=== PATIENT | male | born 2000 | race Native Hawaiian/Other Pacific Islander ===

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

== ENCOUNTER 2021-05-18 07:52 | Outpatient (CLI) | payer OTHER | END 2021-05-18 21:41 | disposition home or self-care (01) | LOC: LAB 07:52 | PROVIDERS: ATTEND Internal Medicine | DX: Z20.822 Contact with and (suspected) exposure to COVID-19 (principal) | CPT/HCPCS: 87635; G2023; U0003 ==

== ENCOUNTER 2023-04-05 10:58 | Outpatient (CLI) | payer OTHER | END 2023-04-05 20:26 | disposition home or self-care (01) | LOC: RESP 10:58 | PROVIDERS: ATTEND Internal Medicine | DX: R01.1 Cardiac murmur, unspecified (principal) ==